=== PATIENT | male | born 1985 | race Caucasian/White ===

== ENCOUNTER 2016-12-16 21:08 | Emergency (ER) | payer BC, SELFPAY ==
--- NOTE | 2017-01-19 15:38 | ER ---
ADMIT: 12/16/2016 RM/LOC: ER [facility] MR#: [id number] [facility] [id number] MAX VEGA [address] [place] [address] Emergency Room Report SEX: M AGE: 31 : 1985 DATE: 12/16/2016 Max Vega is a 31-year-old comes with abdominal pain started this evening as crampy, diffuse across his abdomen, some nausea associated with it. See T- sheet for remainder of his history and physical. A KUB reveals a great deal of stool. He is given Toradol with relief of the pain and some Zofran. He is given lactulose in the Emergency Department. Instructed to go home. He is also encouraged to use a stool softener or laxative as needed. DIAGNOSES: 1. Abdominal pain. 2. Constipation. Ross Castano MD/ sofiya JOB #: [id number] CC: Alex Choi MD, Attending Physician
== END 2016-12-16 21:50 | disposition home or self-care (01) ==
LOC: ER 21:08
DX: K59.00 Constipation, unspecified (principal)